=== PATIENT | male | born 1945 | race Caucasian/White ===

== ENCOUNTER → 2017-04-26 | Outpatient (CLI) | payer MEDICARE, OTHER ==
[2017-04-26 15:43] LABS: HCT 41.3 % (39.0-53.0); HGB 14.8 gm/dL (13.0-17.5); MCH 31.5 pg (25.0-35.0); MCHC 35.8 g/dL (31.0-37.0); Mean Platelet Volume 6.7; Platelet Count 251 k/uL (150-450); RBC 4.69 m/uL (4.30-5.90); RDW 13.4 % (11.5-15.5); WBC 5.3 k/uL (3.8-10.6)
[2017-04-26 15:44] LABS: Appearance,Urine Clear (Clear); Bilirubin,Urine Negative (Negative); Blood,Urine Negative (Negative); Color,Urine Yellow; Glucose,Urine (UA) Negative (Negative); Ketones,Urine Negative (Negative); Leukocyte Esterase,Urine Negative (Negative); Nitrite,Urine Negative (Negative); Protein,Urine Negative (Negative); Specific Gravity,Urine 1.008 (1.001-1.035); Urobilinogen,Urine <2.0 mg/dL (<2.0)
[2017-04-26 15:52] LABS: ALT 40 U/L (21-72); AST 25 U/L (17-59); Albumin 4.4 g/dL (3.5-5.0); Alkaline Phosphatase 53 U/L (38-126); Anion Gap 11 mmol/L; Blood Urea Nitrogen 14 mg/dL (9-20); Calcium 9.9 mg/dL (8.4-10.2); Carbon Dioxide 27 mmol/L (22-30); Chloride 104 mmol/L (98-107); Glucose 95 mg/dL (74-99); INR 1.1 (<1.2); Potassium 4.8 mmol/L (3.5-5.1); Prothrombin Time 10.5 sec (9.0-12.0); Sodium 142 mmol/L (137-145); Total Bilirubin 0.6 mg/dL (0.2-1.3); Total Protein 7.7 g/dL (6.3-8.2)
== END | disposition home or self-care (01) ==
LOC: LABPAT 15:00
PROVIDERS: ATTEND Orthopaedic Surgery
DX: Z01.818 Encounter for other preprocedural examination (principal); Z01.812 Encounter for preprocedural laboratory examination
CPT/HCPCS: 36415; 80053; 81003; 85027; 85610; 85730; 87070; 93005

== ENCOUNTER 2017-05-15 08:17 | Inpatient (IN) | payer MEDICARE, OTHER ==
[2017-05-10 11:27] VITALS: BMI 28.5
[~2017-05-15 08:17] MED LIST: ACETAMINOPHEN TAB 500 MG TAB PO ONE; DEXAMETHASONE SOD PHOSPHATE 10 MG/ML 1 ML VIAL IV ONE; LACTATED RINGERS 1,000 ML IV SCH; MELOXICAM 7.5 MG TAB PO ONE; MIDAZOLAM 2 MG/2 ML VIAL IV PRN; ONDANSETRON 4 MG/2 ML VIAL IVP ONE; ROPIVACAINE 246.25 MG, EPINEPHrine 0.5 MG, KETOROLAC 30 MG, cloNIDine HCL/PF 80 MCG, WA... MISCELLANE ONE; TRANEXAMIC ACID 1,000 MG in SODIUM CHLORIDE 0.9% 50 ML IVPB ONE; ceFAZolin IN SWFI 2 GM/20 ML SYRINGE IVP ONE; fentaNYL (PF) 50 MCG/ML 2 ML AMP IV PRN
[2017-05-15] MEDS ORDERED: MIDAZOLAM 2 MG/2 ML VIAL IVP ONE (10:25)
[2017-05-15] MEDS ORDERED: ROPIVACAINE 1,100 MG, SODIUM CHLORIDE 0.9% 330 ML MISCELLANE PRN ×2 (10:41)
--- NOTE | 2017-05-15 10:43 | P.ONQ ---
Anesthesiology Proc Note - PNB - Peripheral Nerve Block Performed Right Adductor Canal Indication: Acute Post-Operative Pain, Dx/Pain Location, Requested by physician (Dr Tomlinson) Sedation Type: Sedate with meaningful contact maintained Preparation: Sterile Dressing Position: Supine Catheter: Indwelling Needle Types: Other (see comment) (Priya) Needle Size: 100mm (4") Needle Gauge: 18 Technique: Ultrasound Injectate: 0.5% Ropivacaine (see comment for volume) (20cc) Blood Aspirated: No Pain Paresthesia on Injection Noted: No Resistance on Injection: Normal Events: Uneventful and Well Tolerated
[2017-05-15] MEDS ORDERED: MAGNESIUM HYDROXIDE 2,400 MG/10 ML CUP PO PRN (11:38)
[2017-05-15] MEDS ORDERED: HYDROmorphone 2 MG/ML 1 ML SYRINGE IVP PRN ×4 (11:38)
[2017-05-15] MEDS ORDERED: NALOXONE 0.4 MG/ML 1 ML VIAL IV PRN (11:38)
[2017-05-15] MEDS ORDERED: hydrOXYzine PAMOATE 25 MG CAP PO PRN (11:38)
[2017-05-15] MEDS ORDERED: BISACODYL 10 MG SUPP RECTAL PRN (11:38)
[2017-05-15] MEDS ORDERED: NA PHOS,M-B/NA PHOS,DI-BA 133 ML ENEMA RECTAL PRN (11:38)
[2017-05-15] MEDS ORDERED: ONDANSETRON 4 MG/2 ML VIAL IVP PRN (11:38)
[2017-05-15] MEDS ORDERED: DIAZEPAM 5 MG TAB PO PRN ×2 (11:38)
[2017-05-15] MEDS ORDERED: SODIUM CHLORIDE 0.9% 100 ML BAG ONE (11:43)
[2017-05-15] MEDS ORDERED: fentaNYL (PF) 50 MCG/ML 2 ML AMP ONE (11:43)
[2017-05-15] MEDS ORDERED: TRANEXAMIC ACID 1,000 MG/10 ML VIAL ONE (11:43)
[2017-05-15] MEDS ORDERED: PROPOFOL 10 MG/ML 20 ML VIAL IV ONE (11:43)
[2017-05-15] MEDS ORDERED: ePHEDrine SULFATE/0.9% NACL/PF 50 MG/5 ML SYRINGE IV ONE (11:43)
[2017-05-15] MEDS ORDERED: ceFAZolin 1,000 MG in SODIUM CHLORIDE 0.9% 1,000 ML IRRIGATION ONE ×4 (11:43)
[2017-05-15] MEDS ORDERED: MIDAZOLAM 2 MG/2 ML VIAL ONE (11:43)
[2017-05-15] MEDS ORDERED: LACTATED RINGERS 1,000 ML IV ONE (12:45)
--- NOTE | 2017-05-15 13:06 | P.OP ---
Date of Procedure: 05/15/17 Preoperative Diagnosis: Severe osteoarthritis right knee Postoperative Diagnosis: Severe osteoarthritis right knee Procedure(s) Performed: Right total knee arthroplasty Implants: Fenton and Nephew Oxinium femoral component size 7, right Fenton & Nephew Alicia II right nonporous tibial baseplate size 7 Fenton & Nephew size 11 mm Legion XLPE high flexion articular insert, size 7-8 Fenton [employer] Nephew Alicia II resurfacing patellar component, 35 mm All components were cemented using Andrew bone cement.. The articulation is Oxinium on polyethylene. Anesthesia: spinal Surgeon: Jem Tomlinson Human Resources Coordinator #1: Fabiana Olguin Estimated Blood Loss (ml): 50 Pathology: other (Bone and cartilage) Condition: stable Disposition: PACU Indications for Procedure: After failure of conservative treatment we discussed the surgical and nonsurgical treatment options at length. Patient wishes to proceed with a total knee arthroplasty. Complications specific to this procedure were discussed at length, including but not limited to infection, bleeding, stiffness , and nerve injury. Patient is aware of all these complications and informed consent was obtained Operative Findings: The operative findings are consistent with severe osteoarthritis of the right knee Description of Procedure: Patient was seen in the preoperative area consent was reviewed and operative site was marked with a skin marker. An adductor canal pain catheter was placed by anesthesia in the preoperative area. Patient was then brought to the operating room and given preoperative antibiotics intravenously. A spinal anesthetic was administered by the anesthesia department. A tourniquet was placed on the upper thigh and the lower extremity was prepped and draped in usual sterile fashion. A gram of transexamic acid was given. A universal timeout was then performed which confirmed the patient's name, surgical site, ALLERGIES, and consent. The lower extremity was then exsanguinated and tourniquet was inflated to 250 mmHg. A standard and anterior midline approach to the knee was performed. The skin and subcutaneous tissue was dissected down to the patellar tendon. A medial parapatellar arthrotomy was then performed. The knee was then extended, the patellar was everted, and the knee was again flexed. Anterior horns of both menisci were excised, and a release was performed to the posterior medial aspect of the knee. On gross visual inspection, there was complete loss of articular cartilage in the medial and patellofemoral joint spaces. There was also significant cartilage damage in the lateral compartment. There were multiple periarticular osteophytes which were then removed with a Ronguer. The femoral canal was then opened with the appropriate drill, and the intramedullary femoral cutting guide was then placed and set for 4 of valgus. The distal femoral cutting block was then pinned in place, and the distal femur was then cut. The cutting block was then removed and the cut was checked for flatness. Next, the sizing guide was then placed and set for 3 external rotation based off of the epicondylar axis and Whitesides line. After the femur was sized, the appropriate 4-in-1 cutting block was then pinned in place. The anterior condyles were cut without notching. The posterior and chamfer cuts were performed while protecting the collateral ligaments. The cutting block was then removed, and the femoral canal was plugged with autologous bone. Attention was then directed to the tibia. The remaining ACL was removed with a Ronguer, and the tibia was then gently subluxed forward with a large bent knee retractor. Any remaining menisci was excised. The posterior lateral corner was cauterized in order to cauterize the lateral geniculate artery. The extra medullary tibial cutting guide was then placed, set for the appropriate rotation , slope, and depth of resection. The proximal tibia cutting guide was then pinned in place. Proximal tibia was then cut and sized. Next trials were then placed with the appropriate-sized insert. The knee was able to fully extend and flex to 130 and was stable throughout all range of motion. The knee was then extended, patella everted. Patella was then measured, and then using an osteotomy guide, the patella was cut at the appropriate level. The patella was then measured and drilled and the patella trial was then placed. The knee was then taken through range of motion with the patella trial and the patella tracked normally. The knee was then extended patella trial was then removed and the patella was everted. Knee was then flexed and lug holes were drilled through the femoral trial and the femoral trial was then removed. The tibial was then exposed, and the tibial broach guide was then pinned in place after it was set for the appropriate rotation to allow for the most coverage without overhang. The tibia was then reamed and broached. The cut surfaces of bone were then irrigated with pulsatile lavage. The posterior structures were injected with the ropivacaine solution. The knee was also irrigated with Irrisept solution. The components were then opened, the cement was mixed, and the components were then cemented in place. The cement was allowed to harden with the knee in full extension. While the cement was hardening, the remaining soft tissues were then injected with a ropivacaine solution, which consisted of 246.25 mg of ropivacaine, 0.5 mg of epinephrine, 30 mg of Toradol, 80 g of clonidine, and 48.45 mL of sterile water, for a total of 100 mL of fluid injected. After the cemented hardened. The tourniquet was released, and hemostasis was obtained. A second gram of transexamic acid was given. The knee was again irrigated. The knee was again taken through range of motion and found to be stable throughout all range of motion of 0-130 , and the patella tracked normally. The fascia was then closed with #2 strata fix suture. The subcutaneous tissue was closed with 3-0 Vicryl and 3-0 strata fix. Dermabond glue was used for the skin and placed with the knee in flexion. The patient was placed in a sterile silver dressing. Patient was then transferred to recovery room in stable condition. The program support assistant NADEEM Chery was required due the complexity surgery and the need for a skilled director surgical. She assisted in positioning, draping, retraction, and closure of the wound.
--- NOTE | 2017-05-15 13:58 | XR ---
EXAMINATION TYPE: XR knee limited RT DATE OF EXAM: 05/15/2017 CLINICAL HISTORY: Right knee pain and arthritis status post total knee replacement. TECHNIQUE: Portable AP and crosstable lateral views of the right knee are obtained immediately posto peratively. COMPARISON: None FINDINGS: Metallic hardware from total right knee arthroplasty is seen and appears satisfactory in a lignment and position. There is evidence of recent surgery with diffuse subcutaneous gas and soft ti ssue swelling anteriorly noted. IMPRESSION: METALLIC HARDWARE FROM TOTAL RIGHT KNEE ARTHROPLASTY IS SATISFACTORY IN ALIGNMENT.
[2017-05-15] MEDS: ceFAZolin IN SWFI 2 GM/20 ML SYRINGE IVP SCH (15:45)
[2017-05-15] MEDS: HYDROcodone/APAP 5-325MG 1 EACH TAB PO PRN (17:18)
[2017-05-15] MEDS: ASPIRIN 325 MG TAB PO SCH (20:43)
[2017-05-15] MEDS: SENNOSIDES-DOCUSATE SODIUM 1 EACH TAB PO SCH (20:43)
[2017-05-15] MEDS: SODIUM CHLORIDE 0.9% 1,000 ML IV SCH ×2 (20:57→21:05)
[2017-05-16] MEDS: HYDROcodone/APAP 5-325MG 1 EACH TAB PO PRN ×5 (00:04→18:53)
[2017-05-16] MEDS: ceFAZolin IN SWFI 2 GM/20 ML SYRINGE IVP SCH (00:05)
[2017-05-16] MEDS: SODIUM CHLORIDE 0.9% 1,000 ML IV SCH ×2 (04:10→23:02)
--- NOTE | 2017-05-16 05:49 | P.PN ---
Progress Note - Text The patient is status post right adductor canal catheter placement. The catheter was placed for postoperative pain control, status post total right arthroplasty. Ropivacaine 0.2% is infusing at 8 mLs per hour. The patient has no complaints of right lower extremity numbness or weakness. Patient's VAS score is 1 -10. Assessment: Patient's adductor canal catheter is in place and working appropriately. Plan: continue infusion and adjust it as needed.
[2017-05-16] MEDS: MELOXICAM 7.5 MG TAB PO SCH (07:09)
[2017-05-16] MEDS: ASPIRIN 325 MG TAB PO SCH ×2 (07:09→19:46)
[2017-05-16 08:17] LABS: Basophils % (A) 0 %; Eosinophils % (A) 0 %; HCT 36.2 % (39.0-53.0); HGB 12.5 gm/dL (13.0-17.5); Lymphocytes # (A) 0.7 k/uL (1.0-4.8); Lymphocytes % (A) 6 %; MCH 30.9 pg (25.0-35.0); MCHC 34.6 g/dL (31.0-37.0); MCV 89.4 fL (80.0-100.0); Mean Platelet Volume 6.8; Monocytes # (A) 0.6 k/uL (0-1.0); Monocytes % (A) 5 %; Neutrophils % (A) 88 %; Platelet Count 245 k/uL (150-450); RBC 4.04 m/uL (4.30-5.90); RDW 13.8 % (11.5-15.5); WBC 12.4 k/uL (3.8-10.6)
--- NOTE | 2017-05-16 08:45 | P.PN ---
Subjective Progress Note Date: 05/16/17 This is a 72-year-old male who is status post right total knee arthroplasty. This is postoperative day #1. Patient is seen and evaluated at bedside with Dr. Jem Tomlinson. Patient states that his pain has been under control and he has been up and out of bed. Objective - Vital Signs Vital signs: Vital Signs Temp 98.1 F 05/16/17 07:00 Pulse 58 L 05/16/17 07:00 Resp 16 05/16/17 07:00 BP 117/65 05/16/17 07:00 Pulse Ox 95 05/16/17 07:00 Intake & Output 05/15/17 05/16/17 05/16/17 18:59 06:59 18:59 Intake Total 1302 Output Total 50 1200 Balance 1252 -1200 Weight 92.986 kg Intake: IV 1302 Output: Urine 1200 Estimated Blood Loss 50 Other: Voiding Method Toilet - Exam Vital signs are stable. Patient is in no acute distress and is alert and oriented 3. Calf is soft and nontender to palpation. Dressing is clean, dry, and intact. Patient has full foot and ankle motion without pain or difficulty. Neurovascular status and circulatory status are intact. - Labs CBC & Chem 7: 05/16/17 06:58 Labs: Abnormal Lab Results - Last 24 Hours (Table) 05/16/17 Range/Units 06:58 WBC 12.4 H (3.8-10.6) k/uL RBC 4.04 L (4.30-5.90) m/uL Hgb 12.5 L (13.0-17.5) gm/dL Hct 36.2 L (39.0-53.0) % Neutrophils # 11.0 H (1.3-7.7) k/uL Lymphocytes # 0.7 L (1.0-4.8) k/uL Assessment and Plan (1) Primary osteoarthritis of right knee Current Visit: Yes Status: Acute Code(s): M17.11 - UNILATERAL PRIMARY OSTEOARTHRITIS, RIGHT KNEE SNOMED Code(s): 728905223 (2) S/P total knee arthroplasty Current Visit: Yes Status: Acute Code(s): Z96.659 - PRESENCE OF UNSPECIFIED ARTIFICIAL KNEE JOINT SNOMED Code(s): 9782882515676 Plan: #1 Continue with routine postoperative care, leave dressing in place for one week #2 Anticoagulation with aspirin. #3 Physical therapy and CPM today. #4 Appreciate input from medicine. #5 Anticipate discharge home with home care likely tomorrow.
--- NOTE | 2017-05-16 14:46 | P.CONS ---
History of Present Illness - Reason for Consult Leukocytosis. - History of Present Illness Patient is a very pleasant 72-year-old gentleman with the any significant medical problems has history of hyperlipidemia came in for elective right knee arthroplasty patient does have some leukocytosis without any fever chills dysuria patient doesn't have a Leo catheter patient pain is well-controlled patient denied any nausea vomiting cough as suprapubic pain. Patient did Pass gas did not move his bowel yet Review of Systems REVIEW OF SYSTEMS: CONSTITUTIONAL: No fever, no malaise, no fatigue. HEENT: No recent visual problems or hearing problems. Denied any sore throat. CARDIOVASCULAR: No chest pain, orthopnea, PND, no palpitations, no syncope. PULMONARY: No shortness of breath, no cough, no hemoptysis. GASTROINTESTINAL: No diarrhea, no nausea, no vomiting, no abdominal pain. Normoactive bowel sounds. NEUROLOGICAL: No headaches, no weakness, no numbness. HEMATOLOGICAL: Denies any bleeding or petechiae. GENITOURINARY: Denies any burning micturition, frequency, or urgency. MUSCULOSKELETAL/RHEUMATOLOGICAL: Denies any joint pain, swelling, or any muscle pain. ENDOCRINE: Denies any polyuria or polydipsia. The rest of the 14-point review of systems is negative. Past Medical History Past Medical History: Atrial Fibrillation, Hyperlipidemia, Osteoarthritis (OA), Prostate Disorder Additional Past Medical History / Comment(s): enlarged prostate History of Any Multi-Drug Resistant Organisms: None Reported Past Surgical History: Cardiac Ablation, Hernia Repair Additional Past Surgical History / Comment(s): cardiac ablation September 2016-no further problems with afib,discectomy L4-L5 Past Anesthesia/Blood Transfusion Reactions: No Reported Reaction Additional Past Anesthesia/Blood Transfusion Reaction / Comm: no hx blood transfusion Past Psychological History: No Psychological Hx Reported Smoking Status: Former smoker Past Alcohol Use History: Daily Additional Past Alcohol Use History / Comment(s): quit smoking ,smoked approx 16yrs approx 1/2 pack per week, 2 beers per day Past Drug Use History: None Reported - Past Family History Mother Family Medical History: No Reported History Father Family Medical History: Cancer Sister(s) Family Medical History: Cancer Medications and Allergies Home Medications Medication Instructions Recorded Confirmed Type Aspirin 81 mg PO DAILY 05/10/17 05/15/17 History Fish Oil/Dha/Epa [Fish Oil 1,200 1 cap PO DAILY 05/10/17 05/15/17 History mg Fish Oil] Glucosam/Jorge A-Msm1/C/Sen/Bosw 1 tab PO DAILY 05/10/17 05/15/17 History [Glucosamine-Chondroitin Tablet] Multivitamins, Thera [Multivitamin 1 tab PO DAILY 05/10/17 05/15/17 History (formulary)] Simvastatin [Zocor] 20 mg PO HS 05/10/17 05/15/17 History Tamsulosin HCl [Flomax] 0.4 mg PO DAILY 05/10/17 05/15/17 History Aspirin 325 mg PO BID #60 tab 05/16/17 Rx HYDROcodone/APAP 5-325MG [[place] 1 - 2 tab PO Q4-6H PRN #90 tab 05/16/17 Rx 5-325] Sennosides [Senokot] 1 tab PO BID #60 tablet 05/16/17 Rx Allergies Allergy/AdvReac Type Severity Reaction Status Date / Time morphine Allergy swelling,red Verified 05/15/17 12:07 streaking at IV insertion,itching Physical Exam Vitals: Vital Signs Temp Pulse Resp BP Pulse Ox 05/16/17 07:00 98.1 F 58 L 16 117/65 95 05/16/17 00:42 97.5 F L 70 15 115/68 94 L 05/15/17 20:35 97.5 F L 83 119/65 95 05/15/17 16:30 76 16 143/80 96 05/15/17 16:15 77 16 144/81 97 05/15/17 16:00 70 16 141/78 97 05/15/17 15:45 67 16 141/79 97 05/15/17 15:30 66 16 139/75 97 05/15/17 15:15 66 16 142/80 97 05/15/17 15:00 66 16 141/78 95 05/15/17 14:45 97.5 F L 66 16 134/68 96 Intake and Output 05/15/17 05/16/17 05/16/17 22:59 06:59 14:59 Intake Total 200 Output Total 825 375 Balance -825 -375 200 Intake: IV 200 Sodium Chloride 0.9% 1, 200 000 ml @ 65 mls/hr IV . [id number] [facility] Rx#:[id number] Output: Urine 825 375 Other: Voiding Method Toilet Toilet # Voids 1 PHYSICAL EXAMINATION: GENERAL: The patient is alert and oriented x3, not in any acute distress. Well developed, well nourished. HEENT: Pupils are round and equally reacting to light. EOMI. No scleral icterus. No conjunctival pallor. Normocephalic, atraumatic. No pharyngeal erythema. No thyromegaly. CARDIOVASCULAR: S1 and S2 present. No murmurs, rubs, or gallops. PULMONARY: Chest is clear to auscultation, no wheezing or crackles. ABDOMEN: Soft, nontender, nondistended, normoactive bowel sounds. No palpable organomegaly. MUSCULOSKELETAL: No joint swelling or deformity. EXTREMITIES: As mentioned in HPI NEUROLOGICAL: Gross neurological examination did not reveal any focal deficits. SKIN: No rashes. Results CBC & Chem 7: 05/16/17 06:58 Labs: Abnormal Lab Results - Last 24 Hours (Table) 05/16/17 Range/Units 06:58 WBC 12.4 H (3.8-10.6) k/uL RBC 4.04 L (4.30-5.90) m/uL Hgb 12.5 L (13.0-17.5) gm/dL Hct 36.2 L (39.0-53.0) % Neutrophils # 11.0 H (1.3-7.7) k/uL Lymphocytes # 0.7 L (1.0-4.8) k/uL Assessment and Plan Plan: -Right knee arthroplasty postoperative pain management and DVT prophylaxis as per primary service -Leukocytosis without any signs or symptoms of infection and reactive in nature. -Hyperlipidemia continue with the statin -History of atrial flutter fibrillation status post ablation procedure after which patient is not on any beta robert could not anticoagulation and since then patient is in sinus rhythm Thank you for letting me participate in this patient's care will can you to follow the patient on as-needed basis
[2017-05-16] MEDS: SENNOSIDES-DOCUSATE SODIUM 1 EACH TAB PO SCH (19:46)
[2017-05-17] MEDS: HYDROcodone/APAP 5-325MG 1 EACH TAB PO PRN ×2 (00:23→06:32)
[2017-05-17 07:07] VITALS: BP 120/68; PULSE 57; RESP 16; TEMP 97.8
--- NOTE | 2017-05-17 07:48 | P.PN ---
Progress Note - Text Anesthesia POD 2. Patient is status post right TKR under spinal anesthesia with a right adductor canal catheter placed for postoperative pain relief. With ropivacaine 0.2% running at 8 cc's per hour, the patient's VAS is (0, 4). Catheter site is clean dry and intact.
[2017-05-17] MEDS: SODIUM CHLORIDE 0.9% 1,000 ML IV SCH (08:20)
--- NOTE | 2017-05-17 08:47 | P.DS ---
Providers Date of admission: 05/15/17 08:17 Expected date of discharge: 05/17/17 Attending physician: Jem Tomlinson Consults: 05/15/17 11:38 Consult Physician Routine Consulting Provider: Adelaide Gibbons Consult Reason/Comments: medical management Do you want consulting provider notified?: Yes Primary care physician: Physician Nonstaff - Discharge Diagnosis(es) (1) Primary osteoarthritis of right knee Current Visit: Yes Status: Acute (2) S/P total knee arthroplasty Current Visit: Yes Status: Acute Hospital Course: This is a 72-year-old male with known history of degenerative arthritis of the right knee. The patient presents for evaluation. After discussion and consideration patient elects to proceed with total knee arthroplasty. The patient is seen preoperatively by Dr. Tomlinson and cleared for surgery. Patient is admitted to [facility] on 05/15/2017 for total knee arthroplasty. The procedures performed without complication or sequelae. The patient is doing well postoperatively. Labs and vital signs are stable on day of discharge. On day of discharge patient's knee incision is healing well. There is minimal erythema. There is no drainage noted at this time. There is minimal soft tissue swelling to the knee. Patient has full foot and ankle motion without difficulty or pain. Neurovascular status to the right lower extremity is intact. Patient is discharged home in good condition. Please see med rec for accurate list of home medications. Plan - Discharge Summary Discharge Rx Participant: Yes New Discharge Prescriptions: New Aspirin 325 mg PO BID #60 tab HYDROcodone/APAP 5-325MG [[place] 5-325] 1 - 2 tab PO Q4-6H PRN #90 tab PRN Reason: Pain Sennosides [Senokot] 1 tab PO BID #60 tablet No Action Simvastatin [Zocor] 20 mg PO HS Tamsulosin HCl [Flomax] 0.4 mg PO DAILY Glucosam/Jorge A-Msm1/C/Sen/Bosw [Glucosamine-Chondroitin Tablet] 1 tab PO DAILY Multivitamins, Thera [Multivitamin (formulary)] 1 tab PO DAILY Aspirin 81 mg PO DAILY Fish Oil/Dha/Epa [Fish Oil 1,200 mg Fish Oil] 1 cap PO DAILY Discharge Medication List Aspirin 81 mg PO DAILY 05/10/17 [History] Fish Oil/Dha/Epa [Fish Oil 1,200 mg Fish Oil] 1 cap PO DAILY 05/10/17 [History] Glucosam/Jorge A-Msm1/C/Sen/Bosw [Glucosamine-Chondroitin Tablet] 1 tab PO DAILY 05/10/17 [History] Multivitamins, Thera [Multivitamin (formulary)] 1 tab PO DAILY 05/10/17 [History ] Simvastatin [Zocor] 20 mg PO HS 05/10/17 [History] Tamsulosin HCl [Flomax] 0.4 mg PO DAILY 05/10/17 [History] Aspirin 325 mg PO BID #60 tab 05/16/17 [Rx] HYDROcodone/APAP 5-325MG [[place] 5-325] 1 - 2 tab PO Q4-6H PRN #90 tab 05/16/17 [ Rx] Sennosides [Senokot] 1 tab PO BID #60 tablet 05/16/17 [Rx] Follow up Appointment(s)/Referral(s): Jem Tomlinson DO [Doctor of Osteopathic Medicine] - 05/30/17 2:50 pm Ambulatory/Diagnostic Orders: Continuous Passive Motion (CPM) Machine [DME.AMB1] Time Frame: 3 Weeks, Location : Determined By Patient Activity/Diet/Wound Care/Special Instructions: Weightbearing as tolerated with a walker CPM 5-6h daily Leave dressing intact. May be removed by home care nurse in 7 days, 05/22/2017. May shower with dressing on. [facility] with questions or concerns, [phone] CPM- [facility]- [phone]- They will deliver to bedside 05/17/17. Patient can keep CPM up to 21 days and should return it to [facility] at the hospital or to the store at [address] [place] [address]. [facility] (in home) - [phone] Discharge Disposition: HOME WITH HOME HEALTH SERVICES
[2017-05-17] MEDS: MELOXICAM 7.5 MG TAB PO SCH (08:48)
[2017-05-17] MEDS: ASPIRIN 325 MG TAB PO SCH (08:48)
== END 2017-05-17 10:45 | disposition home health service (06) | DRG 470 ==
LOC: 2ORMAIN 08:17 → 3SUR 13:30
PROVIDERS: ADMIT Orthopaedic Surgery; ATTEND Orthopaedic Surgery
PROC: 0SRC069 Replacement of Right Knee Joint with Oxidized Zirconium on Polyethylene Synthetic Substitute, Cemented, Open Approach (ICD-10-PCS; principal; 2017-05-15 10:30)
DX: M17.11 Unilateral primary osteoarthritis, right knee (principal); I48.91 Unspecified atrial fibrillation; D72.829 Elevated white blood cell count, unspecified; Z79.82 Long term (current) use of aspirin; Z79.899 Other long term (current) drug therapy; Z88.5 Allergy status to narcotic agent; Z83.3 Family history of diabetes mellitus; Z87.891 Personal history of nicotine dependence; E78.5 Hyperlipidemia, unspecified; N40.0 Benign prostatic hyperplasia without lower urinary tract symptoms
CPT/HCPCS: 85025; 88300